=== PATIENT | female | born 1980 | race Hispanic/Latino ===

== ENCOUNTER 2018-10-29 20:52 | Emergency (ER) | payer SELFPAY ==
[2018-10-29] MEDS ORDERED: Lidocaine 2% PF 5 ML VIAL ONE (21:16)
[2018-10-29] MEDS ORDERED: Adacel (T-DAP) 0.5 ML SYRINGE ONE (21:57)
[2018-10-29] MEDS ORDERED: Bacitracin Zinc 1 Packet ONE (22:01)
--- NOTE | 2018-10-29 23:26 | RAD ---
RIGHT THIRD FINGER: Date: 10-29-18 FINDINGS: No fracture or opaque foreign body was seen. All bones appear intact. The other visible bones of the adjacent fingers and hand appeared intact. IMPRESSION: No acute finding. POS: HOME
== END 2018-10-29 22:25 | disposition home or self-care (01) ==
LOC: BURERS 20:52
DX: S61.212A Laceration without foreign body of right middle finger without damage to nail, initial encounter (principal); E78.5 Hyperlipidemia, unspecified; I10 Essential (primary) hypertension; Z79.899 Other long term (current) drug therapy; W26.0XXA Contact with knife, initial encounter
CPT/HCPCS: 12001; 90715; J2001

== ENCOUNTER 2018-11-08 16:05 | Emergency (ER) | payer SELFPAY | END 2018-11-08 16:30 | disposition home or self-care (01) | LOC: BURERS 16:05 | DX: S61.212D Laceration without foreign body of right middle finger without damage to nail, subsequent encounter (principal); E78.5 Hyperlipidemia, unspecified; I10 Essential (primary) hypertension; Z79.899 Other long term (current) drug therapy ==

== ENCOUNTER 2021-08-17 15:20 | Outpatient (CLI) | payer OTHER | END 2021-08-17 15:21 | disposition home or self-care (01) | LOC: BURRAD 15:20 | PROVIDERS: ATTEND Family Medicine | DX: M79.671 Pain in right foot (principal); M77.31 Calcaneal spur, right foot ==

== ENCOUNTER 2021-12-21 16:39 | Outpatient (CLI) | payer OTHER | END 2021-12-21 16:40 | disposition home or self-care (01) | LOC: BURRAD 16:39 | PROVIDERS: ATTEND Family Medicine | DX: R39.9 Unspecified symptoms and signs involving the genitourinary system (principal) | CPT/HCPCS: 74018 ==